=== PATIENT | male | born 1985 | race Caucasian/White ===

== ENCOUNTER 2024-09-04 10:44 | Outpatient (AMB) | payer BC, SELFPAY ==
--- NOTE | 2024-09-04 10:45 | AM.OFFWIN_ITS ---
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 Reports that on Wednesday he was doing yoga. The next morning he woke up with pain on the top of his right wrist. The pain has worsened since onset. He has been using ice, Motrin and topical analgesics without much relief. He does have mild relief with ice and Motrin however it is short-lived. 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 Patient does report some improvement. Check an x-ray today, normal, refer to orthopedics. Ibuprofen 800 mg PO TID prn to be taken with food as needed for pain. Okay to use topical analgesics and ice. Avoid activities that exacerbate her bother. Monitor skin integrity underneath the brace. This note is constructed using voice recognition software. While every effort has been made to ensure accuracy in sales and marketing executive, still errors may have been included Sometimes, these errors may affect the content or meaning of the given sentence . Total time spent caring for the patient today was 30 minutes. This includes time spent before the visit reviewing the chart, time spent during the visit, and time spent after the visit on documentation Physical Exam Vital Signs: Last Vital Signs Pulse 77 09/04/24 10:48 Resp 14 09/04/24 10:48 BP 137/69 09/04/24 10:48 Pulse Ox 93 09/04/24 10:48 Oxygen Delivery Method Room Air 09/04/24 10:48 BMI result Body Mass Index 34.2 Results Reviewed Results Reviewed: [facility] [address] [place] [address] XRay Report Signed Patient: Ross Lozano MR#: [id number] : 1985 Acct:[id number] Age/Sex: 39 / M ADM Date: 09/04/24 Loc: HO.HMGCX Attending Dr: Cheryl PITTMAN Ordering Physician: Cheryl Courtney Date of Service: 09/04/24 Procedure(s): XR wrist RT w scaphoid Accession Number(s): [id number] cc: Josie Stroud MD; Cheryl Courtney~ EXAMINATION: XR WRIST, RIGHT CLINICAL INFORMATION: Pain. COMPARISON: None available. TECHNIQUE: Four views of the right wrist. FINDINGS: The bones and soft tissues are normal. No fracture. Alignment is anatomic with normal joint spaces. No erosions or abnormal soft tissue calcifications. XR/XR wrist RT w scaphoid IMPRESSION: Normal right wrist. 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 (2) Decreased range of motion of right wrist: Code(s): M25.631 - Stiffness of right wrist, not elsewhere classified Plan: . Orders: Orders XR wrist RT w scaphoid Today M25.531 - Pain in right wrist, M25.631 - Stiffness of right wrist, not elsewhere classified Referrals Orthopedics Referral M25.531 - Pain in right wrist, M25.631 - Stiffness of right wrist, not elsewhere classified Medications: New ibuprofen 800 mg PO Q8H PRN 60 tabs 0RF pain Coding Level of Care Code Est Pt Level 4 (86355) Diagnoses Right wrist pain M25.531 Decreased range of motion of right wrist M25.631
[2024-09-04 10:48] VITALS: BP 137/69; PULSE 77; RESP 14; O2SAT 93; BMI 34.2
== END 2024-09-04 11:09 | disposition home or self-care (01) ==
PROVIDERS: Visit Provider Nurse Practitioner Family
DX: M25.531 Pain in right wrist (principal); M25.631 Stiffness of right wrist, not elsewhere classified

== ENCOUNTER 2024-09-04 10:44 | Outpatient (REF) | payer BC, SELFPAY ==
--- NOTE | ~2024-09-04 | XR_ITS ---
EXAMINATION: XR WRIST, RIGHT CLINICAL INFORMATION: Pain. COMPARISON: None available. TECHNIQUE: Four views of the right wrist. FINDINGS: The bones and soft tissues are normal. No fracture. Alignment is anatomic with normal joint spaces. No erosions or abnormal soft tissue calcifications. XR/XR wrist RT w scaphoid IMPRESSION: Normal right wrist. Electronically signed by: Isadora Rojas MD 09/04/2024 03:40 PM [facility]
== END 2024-09-04 10:45 | disposition home or self-care (01) ==
LOC: HO.HMGCX 10:44
PROVIDERS: PCP Internal Medicine; Visit Provider Nurse Practitioner Family
DX: M25.531 Pain in right wrist (principal); M25.631 Stiffness of right wrist, not elsewhere classified
CPT/HCPCS: 73110

== ENCOUNTER 2025-08-14 13:53 | Outpatient (AMB) | payer BC, SELFPAY ==
--- NOTE | 2025-08-14 14:29 | MHC.OFFVIS ---
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 He was seen and referred by [facility]. Patient reports that he was lifting heavy items at work repetitively, and upon performing exercises that night he felt pain at the top of his hand/wrist area. He was seen at [facility], followed up with [facility], where an EMG and MRI was ordered and obtained. Patient transferred his care due to insurance purposes. Today he reports improvement since injury, stating that he does not really have pain more of a discomfort, and his hand feels tired at times. Denies numbness or tingling. He states for his job he is required to perform push ups and is looking to discuss if he should be performing exercises. 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 He developed right wrist pain one morning after doing Yoga, DOI: 09/02/24. He says prior to this he was doing heavy lifting of boxes at his job, which is when he first felt some discomfort in his wrist, ~09/01/24. He complains of some discomfort in the dorsal aspect of his wrist, along with a feeling of tiredness after use. He says overall his pain has improved since his injury. His pain lasted for several months and only began to improve within the last few months, since the end of summer. He says he found no improvement from OT in [place]. He has been doing at home exercises and exercising while at the gym. He was being seen at [facility] for this, but was referred here following an insurance issue. He denies any numbness or tingling. He says he has a 2 year old child at home, and it is occasionally painful to pick them up. He is a member of the [employer] and he says he is required to be able to do Push-ups for his bi-annual fitness test. He says push-up activities or heavy lifting activities cause increased dorsal wrist pain. 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 He was able to pass his recent PT test at work, and has been back to work. 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 [facility] Social History (Updated 08/14/25 @ 15:06 by Serene Mensah [facility]) Tobacco use type: Smokeless Tobacco Current occupational status: employed Current occupation: [employer], right hand dominant Review of Systems Const All systems reviewed & are unremarkable except as noted in HPI and below Physical Exam Vital Signs: BMI result Body Mass Index 34.2 Const General: cooperative, healthy appearing and no acute distress Orientation/consciousness: patient oriented x3 HEENT Head: Yes normocephalic and Yes atraumatic Eyes EOM: EOMs intact bilaterally Resp Effort & Inspection: normal respiratory effort and able to speak in complete sentences Cardio Jugular venous distension: no JVD Skin General skin exam: turgor normal Rashes: no rashes Neuro General: patient oriented x3 Extrem Other: Evaluation of Right Upper Extremity: The patient is alert, oriented, and in no acute distress Neuro: Median, Ulnar, Radial nerves motor and sensory intact and sensation is normal to the tips of all digits Vascular: Cap refill brisk ROM: Nearly symmetrical wrist flexion & extension Symmetrical pronosupination No pain with resisted wrist flexion or extension Skin: No lacerations or abrasions. General: No Ecchymosis. No Erythema or evidence of infection. Wrist non-tender No swelling No visible or palpable masses or ganglions. Radiographs: 3 views of the right wrist from 09/04/24 were reviewed by me today in clinic. They show no fractures or dislocations. Right wrist MRI Impression: The scapholunate ligament is intact. Question small tear at the central [facility] Dr. Cullen Grossamn 02/20/25 Dr. Boone impression: No tendinitis or tenosynovitis. No soft tissue mass/ganglion or fluid collection Psych Appearance: grossly normal Affect: normal affect Attitude: cooperative Assessment & Plan Assessment & Plan (1) Decreased range of motion of right wrist: Code(s): M25.631 - Stiffness of right wrist, not elsewhere classified Category: Medical Plan Assessment & Plan 1. Right wrist pain Etiology unclear, likely wrist sprain/strain, secondary to repetitive use at his job DOI: ~09/02/24 I educated him about this condition He primarily had discomfort when placing his wrist under load while in hyper extension, particularly with Push-ups No operative intervention warranted at this time I recommend activity modification & therapy, and he is in agreement I ordered OT hand therapy to work on stretching, strengthening, and normalizing function. He previously attended OT at [facility] in [place], and would like to continue with them. He will work on ROM exercises at home He is a member of the [employer]. He was given a note to resume full duty, without restrictions, effective 08/20/25 He will follow up prn Please note that greater than 40 minutes was spent with this patient going over the history, evaluating the patient and radiographs, formulating possible treatment options, discussing them with the patient, and documenting the visit. Scribed for Marcelina Boone MD by Nahun Michel, biomedical analytical scientist, on 08/14/25 at 2:50 PM, EST. Orders: Orders OT Evaluation and Treatment Today M25.631 - Stiffness of right wrist, not elsewhere classified Coding Level of Care Code Est Pt Level 4 (46766) Diagnoses Decreased range of motion of right wrist M25.631
[2025-08-14 15:05] VITALS: BMI 34.2
== END 2025-08-14 15:21 | disposition home or self-care (01) ==
LOC: HO.HOS 13:54
PROVIDERS: Visit Provider Orthopaedic Surgery
DX: M25.631 Stiffness of right wrist, not elsewhere classified (principal)
CPT/HCPCS: 99203